=== PATIENT | female | born 1955 | race Caucasian/White ===

== ENCOUNTER 2020-04-28 06:18 | Day surgery (SDC) | payer BC ==
[2020-04-22 15:18] VITALS: BMI 24.4
--- OUTSIDE RECORDS SUMMARY | 2020-04-28 06:47 | XMS ---
:1955 Author Organization [facility] Care Team Providers Name Role Phone Trevon, Kota Unavailable Unavailable Jenifer FERREIRA MD Unavailable Unavailable SIGJenifer SOW MD Unavailable Unavailable SIGJenifer SOW MD Unavailable Unavailable SIGLOCKJenifer MD Unavailable Unavailable SIGLOCKJenifer MD Unavailable Unavailable SIGLOCKJenifer MD Unavailable Unavailable SIGLOCKJenifer MD Unavailable Unavailable SIGLOCKJenifer MD Unavailable Unavailable SIGLOCKJenifer MD Unavailable Unavailable SIGLOCKJenifer MD Unavailable Unavailable SIGLOCKJenifer MD Unavailable Unavailable SIGLOCKJenifer MD Unavailable Unavailable Alahung M Unavailable Unavailable Maria Luisa Unavailable Unavailable Jerrica Padron Unavailable Unavailable Re-disclosure Warning The records that you are about to access may contain information from federally- assisted alcohol or drug abuse programs. If such information is present, then the following federally mandated warning applies: This information has been disclosed to you from records protected by federal confidentiality rules (42 CFR part 2). The federal rules prohibit you from making any further disclosure of this information unless further disclosure is expressly permitted by the written consent of the person to whom it pertains or as otherwise permitted by 42 CFR part 2. A general authorization for the release of medical or other information is NOT sufficient for this purpose. The Federal rules restrict any use of the information to criminally investigate or prosecute any alcohol or drug abuse patient.The records that you are about to access may contain highly sensitive health information, the redisclosure of which is protected by Article 27-F of the [place] State Public Health law. If you continue you may haveaccess to information: Regarding HIV / AIDS; Provided by facilities licensed or operated by the [facility] Office of Mental Health; or Provided by the [facility] Office for People With Developmental Disabilities. If such information is present, then the following [facility] mandated warning applies: This information has been disclosed to you from confidential records which are protected by state law. State law prohibits you from making any further disclosure of this information without the specific written consent of the person to whom it pertains, or as otherwise permitted by law. Any unauthorized further disclosure in violation of state law may result in a fine or mcc sentence or both. A general authorization for the release of medical or other information is NOT sufficient authorization for further disclosure. Allergies and Adverse Reactions Type Description Substance Reaction Status Data Source(s ) 3 No Known Drug Allergies No Known Drug NEXTGEN ([facility] Encounters Encounter Providers Location Date Indications Data Source(s ) Outpatient Attender: Sixto 02/21/2020 NEXTGEN ( [facility] FarquharReferrer: 08:15:00 AM Medica [place] [facility] [place] [facility] Trevon [facility]) Outpatient Attender: Lex 02/20/2020 NEXTGEN ([facility] KatzReferrer: 04:00:00 PM Medical - [place] Lex Padron [facility]) Outpatient Attender: Lex 01/30/2020 NEXTGEN ([facility]ron 03:25:00 PM [facility] [place] [facility]) Outpatient Attender: Lex 08/12/2019 NEXTGEN ([facility] KatzReferrer: 02:45:00 PM Medical - [place] Lex Padron [facility]) Outpatient Attender: Maci 02/06/2019 NEXTGEN ([facility] AlasioReferrer: 12:00:00 AM Medical - [place] Lex Padron [facility]) Outpatient Attender: Lex 02/05/2019 NEXTGEN ([facility] KatzReferrer: 03:15:00 PM [facility] [place] Lex Padron [facility]) Outpatient Attender: Sixto 01/28/2019 NEXTGEN ( [facility] FarquharReferrer: 03:30:00 PM Medica l - [place] Sixto Rojoquhar [facility]) Outpatient Attender: Lex 01/28/2019 NEXTGEN ([facility] Padron 09:32:00 AM [facility] [place] [facility]) Outpatient Attender: GORDY 11/19/2018 NEXTGEN ([facility] HANNA MDReferrer: 10:15:00 AM Medi [place] [facility] [place] [facility] [place] GORDY FERREIRA MD [facility]) Outpatient Attender: Mojgan 11/19/2018 NEXTGEN ([place] [facility] JaffeReferrer: 09:30:00 AM Medical - [facility] [place] GORDY FERREIRA MD [facility]) Medications Medication Brand Start Product Dose Route Administrative Pharmacy [facility] Indications Reaction Description Data Name Date Form Instructions Instructions Source(s) Levothyroxi TIROSI RP NEXTGE N ne Sodium NT ([facility] 0.025 MG Medical - Oral [place] [facility]) 25 mcg 25 mcg This may be an active medication. No end date is available. Start date above may not reflect actual date the medication was s tarted. Insurance Providers Payer name Policy type Policy ID Covered Covered republican's Policy P eduardo / Coverage republican ID relationship to [employer] ormation type [employer] BC PPO [id number] S [id number] [place]EM [id number] [place] Plan [place] Problems, Conditions, and Diagnoses Code Display Name Description Problem Type Effective Data Sour ce(s) Dates Z80.3 Family history of Family history of Diagnosis 02/20/2020 NEXTGEN malignant neoplasm breast cancer 04:00:00 PM ([facility] of breast [facility]) Z01.419 Encounter for Encounter for Diagnosis 02/20/2020 NEXTGEN gynecological gynecological 04:00:00 PM ([facility] examination examination EDT [facility] (general) without abnormal [place] [facility] (routine) without finding Group P C) abnormal findings H26.9 Unspecified Early cataracts, Diagnosis 01/28/2019 NEXTGEN cataract bilateral 03:30:00 PM ([facility] - [place] [facility]) 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/28/2019 NEXTG EN disc, left eye optic disc 03:30:00 PM ([facility] - [place] [facility]) H43.812 Vitreous PVD (posterior Diagnosis 01/28/2019 NEXTGEN degeneration, left vitreous 03:30:00 PM ([facility] eye detachment), left EDT Medical - [place] eye [facility]) R09.89 Other specified Tickle in throat Diagnosis 11/19/2018 NEX TGEN symptoms and signs 10:15:00 AM ([facility] involving the EDT Medical - t circulatory and [facility] respiratory [facility]) systems Z01.10 Encounter for Encounter for Diagnosis 11/19/2018 NEXTGEN examination of examination of 10:15:00 AM ([facility] ears and hearing ears and hearing EDT Hi dical - [place] without abnormal without abnormal [facility] findings findings Group [facility]) H90.12 Conductive hearing Conductive hearing Diagnosis 9 NEXTGEN loss, unilateral, loss of left ear 09:30:00 AM ([facility] left ear, with with unrestricted EDT Med [facility] - [place] unrestricted hearing of right [email or web address] [employer] [facility]) contralateral side H69.82 Other specified Dysfunction of Diagnosis 11/19/2018 NEXTG EN disorders of left eustachian 09:30:00 AM ([facility] Eustachian tube, tube EDT [facility] - [place] left ear [email or web address]) Surgeries/Procedures Procedure Description Date Indications Data Source(s) OCCULT BLD FECES 1-3 OCCULT BLD FECES 1-3 02/20/2020 NEXTGEN ([facility] TESTS TESTS 12:00:00 AM [facility] EDT [facility] P C) PREV VISIT EST AGE PREV VISIT EST AGE 0702/20/2020 NEX TGEN ([facility] 40-64 40-64 [facility] OFFICE/OUTPATIENT OFFICE/OUTPATIENT 08/12/2019 NEXTG EN ([facility] VISIT EST VISIT EST 12:00:00 AM [facility] EST Medical Group P C) HPV HIGH-RISK TYPES HPV HIGH-RISK TYPES 02/06/2019 N EXTGEN ([facility] 12:00:00 AM [facility] EDT Medical [facility] P C) CYTOPATH C/V AUTO IN CYTOPATH C/V [facility]O [facility] FL[facility] FLUID 12:00:00 AM [facility]) EYE EXAM&TX ESTAB PT EYE EXAM&TX ESTAB PT 01/28/2019 NEXTGEN ([facility] 1/>VST 1/>VST 12:00:00 AM [facility] C) OFFICE/OUTPATIENT OFFICE/OUTPATIENT 11/19/2018 NEXTG EN ([facility] VISIT EST VISIT EST 12:00:00 AM [facility]) TYMPANOMETRY TYMPANOMETRY 11/19/2018 [facility] ([facility] unt 12:00:00 AM [facility]) SPEECH THRESHOLD SPEECH THRESHOLD 11/19/2018 [facility] ([facility] AUDIOMETRY AUDIOMETRY 12:00:00 AM [facility]) AUDIOMETRY AIR & BONE AUDIOMETRY AIR & BONE 11/19/2018 [facility] ([facility] 12:00:00 AM [facility]) Results ID Date Data Source [id number] 04/23/2020 09:14:00 AM EDT [facility] Name Value Range Interpretation Description Data Sup porting Code Source(s) Document(s ) SARS [facility] coronavirus 2 RNA This lab was ordered by EULALIA alas [facility] and reported by [facility]. Procedure
[2020-04-28] MEDS ORDERED: ERYTHROMYCIN 0.5% OPHTHALMIC OINTMENT 3.5 GM TUBE ONE (07:12)
[2020-04-28] MEDS ORDERED: BUPIVACAINE HCL/PF 0.5% (5MG/ML) 10 ML VIAL ONE (07:13)
[2020-04-28] MEDS ORDERED: POVIDONE-IODINE 5% OPHTHALMIC PREP 30 ML SOLUTION ONE (07:13)
[2020-04-28] MEDS ORDERED: LIDOCAINE 1%/EPI 1:100000 (20 ML MULTI DOSE VIAL) ONE (07:13)
[2020-04-28] MEDS ORDERED: TETRACAINE 0.5% OPHTH SOLN 2 ML BOTTLE ONE (07:13)
[2020-04-28] MEDS ORDERED: MIDAZOLAM HCL 2 MG/2 ML SINGLE DOSE VIAL ONE (07:36)
[2020-04-28] MEDS ORDERED: PROPOFOL 20 ML ONE ×3 (07:41)
[2020-04-28] MEDS ORDERED: SUCCINYLCHOLINE CHLORIDE 200 MG/10 ML SYRINGE ONE (07:41)
[2020-04-28] MEDS ORDERED: ceFAZolin SODIUM 1 GM VIAL ONE (07:52)
[2020-04-28] MEDS ORDERED: EPHEDRINE SULFATE/0.9% NACL/PF 50 MG/10 ML SYRINGE NR ONE (08:09)
[2020-04-28] MEDS ORDERED: DESFLURANE GAS 240 ML BOTTLE IH ONE (10:04)
[2020-04-28] MEDS ORDERED: SEVOFLURANE 250 ML BTL ONE (10:05)
[2020-04-28] MEDS ORDERED: ONDANSETRON 4 MG/2 ML VIAL IVPUSH PRN (10:28)
[2020-04-28] MEDS ORDERED: PROMETHAZINE HCL 25 MG/1 ML VIAL IVPUSH PRN (10:28)
[2020-04-28] MEDS ORDERED: oxyCODONE HCL 5 MG TABLET PO PRN ×2 (10:28)
[2020-04-28 11:16] VITALS: TEMP 98.1
--- NOTE | 2020-04-28 11:44 | OP ---
DATE OF OPERATION: 04/28/2020 PREOPERATIVE DIAGNOSIS: Extensive defect, left medial canthus, status post Mohs excision for a basal cell carcinoma. POSTOPERATIVE DIAGNOSIS: Extensive defect, left medial canthus, status post Mohs excision for a basal cell carcinoma. PROCEDURE: 1. Debridement of defect, left medial canthus. 2. Punctal dilation and probing, left medial canthus demonstrating intact canaliculi. 3. Medial labial flap advancement into the left medial canthus. 4. Glabellar V-Y plasty, glabella to left medial canthus. 5. Left medial canthoplasty. SURGEON: Danilo Trevino MD ANESTHESIA: General. COMPLICATIONS: None. ESTIMATED BLOOD LOSS: 10-20 mL. DESCRIPTION OF PROCEDURE: Patient brought to the operating room, placed on the operating room table. Vital signs were monitored by Anesthesia. Patient was placed under general anesthesia. Timeout was performed. The wound was photographed. It was a large wound encompassing the entire medial canthus, extending down along the lateral nasal sidewall. A timeout was performed. Potential flaps, medial labial flap along the left nasolabial fold extending to the defect, and a glabellar flap extending up into the midline glabella were then marked with sterile marking pen. A 50/50 mixture of 2% Xylocaine, 1:100,000 epinephrine, 0.5% Marcaine was injected in the forehead diffusely, left medial canthus, left lower lid, and left cheek along the root of the nose down to the upper lip, for a total of 10 mL. The patient was prepped and draped in the usual sterile fashion exposing both eyes. Right eye was closed manually. The wound was then debrided , seen to extend deeply to the lateral nasal wall right down to the bone. The upper and lower puncta were dilated, intubated with Jim probes. Probing the system, no canalicular disruption could be identified. The anterior limb of the medial canthal tendon appeared to be intact at the bone. All of the soft tissue was removed. A medial labial flap was developed by incising along the root of the nose, extending into the nasolabial fold, and then this dissection was carried into the deep dermis anterior to the muscle plane, advancing a medial labial flap superiorly. The flap was advanced and secured to the deep medial canthal tendon tissues with double-arm 4-0 Prolene passed through another 8-Turkmen red rubber catheter. All of the advancement flaps were closed with subcuticular 5-0 Vicryl, and then the defect was significantly narrowed but left a defect from the medial portion of the left lower lid toward the canthus and a defect superiorly. A skin-muscle flap was developed in the left lower lid. Subsequently, incision was made and the flap was advanced, and this was sutured to the deep medial canthal tendon with 5-0 Vicryl suture. A V glabellar incision was made in the glabella extending to the lateral portion of the defect, and the glabellar flap was undermined widely, as was the nasal bridge, and this glabella flap was then rotated to left medial canthus where it met the advanced medial labial flap. The glabella flap was also secured with a double-arm 4-0 Prolene secured to No. 8-Turkmen red rubber catheter, rotating it, and it was sutured to the superior edge of medial labial flap with buried 5-0 Vicryl sutures, taking deep bites of periosteum to reform the canthal cavity. The donor site for this flap of glabella was closed by undermining glabella in the galeal plane on both sides, advancing it nasally and closing with 3-0 chromic suture. The subcuticular tissues were closed with 5-0 chromic in the area of the rotated glabella flap which was trimmed to accommodate the canthal defect, and then a small amount of the flap was tucked back into the inferior portion of the donor site to create a V-Y plasty, was sutured there with 5-0 Vicryl suture. Following this, the wounds were all closed with a running and interrupted 5-0 plain suture in the forehead, V-Y plasty, and in the medial labial flap from the root of the nose up to the canthus. At the canthus, the skin-muscle flap was advanced nasally from the lower lid, and this was sutured to the advanced glabella and medial labial flaps with 5-0 Vicryl sutures and with interrupted 6-0 plain suture, recreating the canthus meticulously. All of these flaps were joined with 6-0 plain around the canthal structures in order to recreate the canthus, taking deep bites of the medial canthal tendon, creating a nice concavity. Once all the skin was closed, subciliary incision in the lower lid was closed with 6-0 plain. A deformity in the lower lid resulting from rotational flaps was excised and closed with 6-0 plain. Erythromycin was placed in the eye and on all the sutures, and a dental roll was placed over strip Telfa covering the medial canthus and the bolsters, creating an impression in the medial canthus to ensure the cavity was sutured there with a 4-0 silk suture. Strip Telfa, an eye patch, and fluff were then placed over this. Antibiotic ointment was placed over all the sutures. This was secured to the cheek and forehead with Mastisol and Steri-Strips. The patient was extubated, taken to the recovery room in stable condition. DANILO TREVINO M.D. [id number]
[2020-04-28 12:17] VITALS: BP 122/76; PULSE 90
== END 2020-04-28 12:20 | disposition home or self-care (01) ==
LOC: FASU 06:18
PROVIDERS: ATTEND Ophthalmology
PROC: 0JB10ZZ Excision of Face Subcutaneous Tissue and Fascia, Open Approach (ICD-10-PCS; 2020-04-28)
PROC: 0HX1XZZ Transfer Face Skin, External Approach (ICD-10-PCS; 2020-04-28)
PROC: 08SR0ZZ Reposition Left Lower Eyelid, Open Approach (ICD-10-PCS; 2020-04-28)
PROC: 0JX10ZB Transfer Face Subcutaneous Tissue and Fascia with Skin and Subcutaneous Tissue, Open Approach (ICD-10-PCS; principal; 2020-04-28 08:02)
DX: Z42.8 Encounter for other plastic and reconstructive surgery following medical procedure or healed injury (principal); Z85.828 Personal history of other malignant neoplasm of skin; H02.89 Other specified disorders of eyelid
CPT/HCPCS: 94760